=== PATIENT | female | born 1970 | race Caucasian/White ===

== ENCOUNTER 2016-11-21 15:00 | Emergency (ER) | payer OTHER ==
[2016-11-21] MEDS ORDERED: BABY ASPIRIN 81 MG CHEW PO ONE (15:16)
[2016-11-21] MEDS ORDERED: BABY ASPIRIN 81 MG CHEW ONE (15:25)
--- NOTE | 2016-11-21 15:28 | ERPHSYRPT ---
- History of Present Illness Time Seen by Provider: 11/21/16 15:20 Historian: patient Exam Limitations: no limitations Patient Subjective Stated Complaint: PT STATES AT 1400 SHE AWOKE FROM SLEEP HAVING CHEST PAIN. STATES IT HURT WORSE WHEN SHE GETS UP AND MOVES AROUND. REPORTS FEELING TIRED FOR APPROX 5 DAYS. Triage Nursing Assessment: PT IS AOX3, AMBULATORY TO COT WITH NO DIFFICUTLIES, RESPS ARE EASY AND NONLABORED, DENIES COUGH,HEART SOUNDS ARE NORMAL, RADIAL PULSES PALPATED AND ARE STRONG AND EQUAL. NO EDEMA APPRECIATED. REPORTS PAIN TO THE LEFT CHEST THAT RADIATES TO THE CENTER.PAIN IS CONSTANT IN NATURE. PT DENIES FEVER, REPORTS CHILLS. Physician History: The patient is a 46-year-old female who comes in complaining of worsening left- sided chest pain for 3 days. It hurts to take a deep breath or to move her trunk. She works nights and when she woke up this afternoon it was hurting worse than it was yesterday. She denies shortness of breath. She denies sweating. She has no cardiac history. A few months ago she had pleurisy and she thinks it is the same thing. Her past medical history significant for pleurisy, back pain, and ADHD. Timing/Duration: hour(s) (1) Activities at Onset: rest Quality: sharpness Location: other (left chest/ribs) Chest Pain Radiation: no radiation Severity of Pain-Max: moderate Severity of Pain-Current: moderate Modifying Factors: Improves With: breathing, movement Associated Symptoms: hurts to breathe Prior Chest Pain/Cardiac Workup: non-cardiac (pluerisy) Nitro Today/Relief: no nitro taken today Aspirin Treatment Today: no aspirin today Allergies/Adverse Reactions: Influenza Virus Vaccines Adverse Reaction (Verified 03/18/16 09:43) Home Medications: Hydrocodone/APAP 10/325 mg [[place] 10/325 MG Tablet] 1 tab PO Q4-6HPRN PRN 03/18/16 [History] Dextroamphetamine/Amphetamine [Adderall 20 mg Tablet] 20 mg PO BID 11/21/16 [ History] Hx Tetanus, Diphtheria Vaccination/Date Given: Yes Hx Influenza Vaccination/Date Given: No Hx Pneumococcal Vaccination/Date Given: No Immunizations Up to Date: Yes - Review of Systems Constitutional: No Fever, No Chills Eyes: No Symptoms Ears, Nose, & Throat: No Symptoms Respiratory: No Cough, No Dyspnea Cardiac: Chest Pain Abdominal/Gastrointestinal: No Abdominal Pain, No Nausea, No Vomiting, No Diarrhea Genitourinary Symptoms: No Dysuria Musculoskeletal: No Back Pain, No Neck Pain Skin: No Rash Neurological: No Dizziness, No Focal Weakness, No Sensory Changes Psychological: No Symptoms Endocrine: No Symptoms Hematologic/Lymphatic: No Symptoms Immunological/Allergic: No Symptoms All Other Systems: Reviewed and Negative - Past Medical History Pertinent Past Medical History: Yes Neurological History: Migraines, Peripheral Neuropathy Cardiac History: No Pertinent History Respiratory History: No Pertinent History Endocrine Medical History: No Pertinent History Musculoskeletal History: Other Other Medical History: spurring on T-spine, CARPAL TUNNEL - Past Surgical History Past Surgical History: Yes Female Surgical History: Section, Hysterectomy, Other - Social History Smoking Status: Former smoker How long have you smoked: USES VAPOR Exposure to second hand smoke: No Alcohol Use: None Drug Use: none Patient Lives Alone: No Significant Family History: heart disease, cancer, diabetes - Female History Hx Last Menstrual Period: HYST Hx Now: No - Nursing Vital Signs Nursing Vital Signs: Initial Vital Signs Temperature 97.9 F Pulse Rate [Bilateral Radial] 76 Pulse Rate 83 Respiratory Rate 18 Blood Pressure [Right Arm] 115/71 Pain Intensity 4 - Physical Exam General Appearance: no apparent distress, alert Eye Exam: PERRL/EOMI, eyes nml inspection Ears, Nose, Throat Exam: normal ENT inspection, moist mucous membranes Neck Exam: normal inspection, non-tender, supple, full range of motion Respiratory Exam: chest tenderness (palpation of left chest and left axilla reproduces pt's chest pain.) Cardiovascular Exam: regular rate/rhythm, normal heart sounds Gastrointestinal/Abdomen Exam: soft, No tenderness, No mass Pelvic Exam: not done Rectal Exam: not done Back Exam: normal inspection, No CVA tenderness, No vertebral tenderness Extremity Exam: normal inspection, normal range of motion Neurologic Exam: alert, oriented x 3, cooperative, normal mood/affect, sensation nml, No motor deficits Skin Exam: normal color, warm, dry SpO2 Interpretation: normal SpO2: 100 Oxygen Delivery: Room Air - Radiology Exams Chest X-ray Interpretation: Teleradiologist Report, Negative (per Dr Griffin.) Ordered Tests: Active Orders 24 hr Category Date Time Status Accounts Payable Bookkeeper STAT Care 11/21/16 15:15 Active IV Insertion STAT Care 11/21/16 15:15 Active CHEST 2 VIEWS (PA AND LAT) Stat Exams 11/21/16 15:41 Completed CBC W DIFF Stat Lab 11/21/16 15:15 Completed CMP Stat Lab 11/21/16 15:15 Completed TROPONIN Stat Lab 11/21/16 15:15 Completed Medication Summary Discontinued Medications Generic Name Dose Route Start Last Admin Trade Name Freq PRN Reason Stop Dose Admin Aspirin 324 mg 11/21/16 15:16 11/21/16 15:18 Baby Aspirin 81 Mg Chew PO 11/21/16 15:17 324 mg STAT ONE Administration Aspirin Confirm 11/21/16 15:25 Baby Aspirin 81 Mg Chew Administered 11/21/16 15:26 Dose 324 mg .ROUTE .STK-MED ONE Ketorolac Tromethamine 60 mg 11/21/16 15:41 11/21/16 16:03 Toradol 30 Mg Injection IM 11/21/16 15:42 Not Given STAT ONE Ketorolac Tromethamine 30 mg 11/21/16 15:51 11/21/16 16:00 Toradol 30 Mg Injection IV 11/21/16 15:52 30 mg STAT ONE Administration Ketorolac Tromethamine Confirm 11/21/16 15:52 Toradol 30 Mg Injection Administered 11/21/16 15:53 Dose 30 mg .ROUTE .STK-MED ONE Lab/Rad Data: Laboratory Result Diagrams 11/21/16 15:15 11/21/16 15:15 Laboratory Results 11/21/16 11/21/16 Range/Units 15:15 15:15 WBC 5.3 (4.0-10.5) K/mm3 RBC 4.00 L (4.1-5.4) M/mm3 Hgb 13.0 (12.0-16.0) gm/dl Hct 38.6 (35-47) % MCV 96.5 (78-100) fl MCH 32.5 H (26-32) pg MCHC 33.7 (32-36) g/dl RDW 11.5 (11.5-14.0) % Plt Count 185 (150-450) K/mm3 MPV 11.8 H (6-9.5) fl Gran % 71.8 H (36.0-66.0) % Lymphocytes % 19.8 L (24.0-44.0) % Monocytes % 6.9 (0.0-12.0) % Eosinophils % 1.1 (0.00-5.0) % Basophils % 0.4 (0.0-0.4) % Basophils # 0.02 (0-0.4) Sodium 143 (136-145) mEq/L Potassium 4.1 (3.5-5.1) mEq/L Chloride 109 H (98-107) mEq/L Carbon Dioxide 26.8 (21-32) mEq/L Anion Gap 11.7 (5-15) MEQ/L BUN 13 (9-20) mg/dL Creatinine 0.65 (0.55-1.30) mg/dl Estimated GFR > 60 ML/MIN Glucose 108 (70-110) MG/DL Calcium 8.7 (8.5-10.1) mg/dL Total Bilirubin 0.40 (0.2-1.0) mg/dL AST 18 (15-37) U/L ALT 23 (12-78) U/L Alkaline Phosphatase 70 (46-116) U/L Troponin I < 0.017 (0.000-0.056) ng/ml Serum Total Protein 7.0 (6.4-8.2) gm/dL Albumin 4.1 (3.4-5.0) g/dL - Progress Progress: unchanged Air Movement: good Blood Culture(s) Obtained: No Antibiotics given: No Counseled pt/family regarding: lab results, diagnosis, rad results - Departure Time of Disposition: 16:34 Departure Disposition: Home Clinical Impression: Chest pain made worse by breathing Condition: Stable Critical Care Time: No Additional Instructions: You have musculoskeletal chest pain. You were given Toradol 30 mg IV in the ER. Take Flexeril 5 mg every 8 hours as needed. Follow-up as needed. Prescriptions: Cyclobenzaprine HCl [Flexeril] 5 mg PO Q8H PRN PRN #6 tablet PRN Reason: Pain
[2016-11-21] MEDS ORDERED: TORAdol 30 mg Injection IM ONE (15:41)
[2016-11-21] MEDS ORDERED: TORAdol 30 mg Injection IV ONE (15:51)
[2016-11-21] MEDS ORDERED: TORAdol 30 mg Injection ONE (15:52)
[2016-11-21 15:59] LABS: BASOPHIL % 0.4 % (0.0-0.4); Eosinophil % 1.1 % (0.00-5.0); Granulocytes % 71.8 % (36.0-66.0); Lymphocytes % 19.8 % (24.0-44.0); Mean Cell Volume 96.5 fl (78-100); Mean Corpuscular Hemoglobin 32.5 pg (26-32); Mean Platelet Volume 11.8 fl (6-9.5); Monocytes % 6.9 % (0.0-12.0); Platelet Count 185 K/mm3 (150-450); Red Cell Distribution Width 11.5 % (11.5-14.0); White Blood Count 5.3 K/mm3 (4.0-10.5)
[2016-11-21 16:07] LABS: ALBUMIN 4.1 g/dL (3.4-5.0); ALKALINE PHOSPHATASE 70 U/L (46-116); ANION GAP 11.7 MEQ/L (5-15); BLOOD UREA NITROGEN 13 mg/dL (9-20); CHLORIDE 109 mEq/L (98-107); Carbon Dioxide 26.8 mEq/L (21-32); Glucose 108 MG/DL (70-110); Potassium 4.1 mEq/L (3.5-5.1); SGOT/AST 18 U/L (15-37); SGPT/ALT 23 U/L (12-78); SODIUM 143 mEq/L (136-145)
--- NOTE | 2016-11-21 16:07 | XRAY ---
Indication: Chest pain. Comparison: March 18, 2016. PA/lateral chest again demonstrates normal heart, lungs, and bony thorax.
[2016-11-21 16:12] LABS: TROPONIN < 0.017 ng/ml (0.000-0.056)
[2016-11-21 16:57] VITALS: BP 127/70; PULSE 76; O2SAT 99
== END 2016-11-21 16:53 | disposition home or self-care (01) ==
LOC: ED 15:00
DX: R07.89 Other chest pain (principal)
CPT/HCPCS: 36000; 36415; 71020; 80053; 84484; 85025; 93041; 96372; 96374; 99284; J1885; A9270-GY

== ENCOUNTER 2021-07-26 05:56 | Day surgery (SDC) | payer OTHER ==
[2021-07-26] MEDS ORDERED: Lactated Ringers 1,000 ML IV SCH (07:00)
[2021-07-26] MEDS ORDERED: Lactated Ringers 1,000 ML IV ONE (07:14)
[2021-07-26] MEDS ORDERED: Xylocaine-Mpf 2% 5 Ml Vial ONE (08:24)
[2021-07-26] MEDS ORDERED: DIPRIVAN 200 MG/20 ML IV ONE ×2 (08:24→08:31)
[2021-07-26] MEDS ORDERED: SUBLIMAZE 100 MCG/2 ML ONE (08:33)
--- NOTE | 2021-07-26 09:17 | OP ---
SURGERY DATE/TIME: 07/26/2021 0822 PREOPERATIVE DIAGNOSIS: Screening exam. POSTOPERATIVE DIAGNOSIS: Sigmoid colon polyp. PROCEDURE: Colonoscopy with cold forceps biopsy. SURGEON: Dr. Sage. ANESTHESIA: MAC. Medications given by anesthesia department. HISTORY: The patient is a 51-year-old white female presenting now for screening colonoscopy. The patient was appraised of the risks of the procedure including the risk of perforation, phlebitis, untoward reaction to medication, bleeding and missed lesions. The patient verbalized her understanding and desired to have the procedure performed. DESCRIPTION OF PROCEDURE: The patient was given the medications by the anesthesia department. She had continuous pulse oximetry, ECG monitoring, intermittent blood pressure monitoring and tidal CO2 monitoring during the examination. She was placed in the left lateral decubitus position. A digital rectal examination was performed and revealed normal anal sphincter tone and no masses. The flexible Olympus pediatric colonoscope was used to intubate the rectum. A view of the colon was developed sequentially to the cecum. Upon insertion and withdrawal, including a retroflex view in the rectum was noted one small polyp in the sigmoid colon this was biopsied with cold biopsy forceps destroying the lesion. The scope was removed from the patient who tolerated the procedure well and was sent back to OP recovery in good condition. The prep was noted to be fair to good.
[2021-07-26 09:20] VITALS: O2SAT 100
[2021-07-26 09:33] VITALS: BP 112/78; PULSE 78
== END 2021-07-26 09:46 | disposition home or self-care (01) ==
LOC: SDC 05:56
PROVIDERS: ATTEND Family Medicine
DX: Z12.11 Encounter for screening for malignant neoplasm of colon (principal); D12.5 Benign neoplasm of sigmoid colon
CPT/HCPCS: J2704; J3010

== ENCOUNTER 2024-02-28 20:08 | Emergency (ER) | payer SELFPAY ==
[2024-02-28 21:06] VITALS: RESP 18; TEMP 97.5
--- NOTE | 2024-02-28 21:51 | ERPHSYRPT ---
- History of Present Illness Time Seen by Provider: 02/28/24 21:45 Historian: patient Exam Limitations: no limitations Patient Subjective Stated Complaint: pt states she has been having pain in her rt side. worse with lifting and straining. worse when trying to lay on her rt side. Triage Nursing Assessment: pt alert and oreinted, answers questions approp. respirations nonlabored. skin warm and dry. abd soft, bowel sounds present x4 quads Physician History: 54yo f presents via private vehicle for RUQ and epigastric pain x 2wks. Pt reports her family has been telling her to go to the doctor for her pain and she finally decided to come today. Pt denies any nausea/vomiting/diarrhea, denies any fevers. Pt reports some mild constipation, last BM was 3d ago which she reports is normal for her. Pt reports hx of hysterectomy, no other abdominal surgeries. Timing/Duration: week(s) (2) Activities at Onset: none Quality: cramping Abdominal Pain Onset Location: RUQ, epigastric Pain Radiation: no radiation Severity of Pain-Max: mild Severity of Pain-Current: mild Modifying Factors: Improves With: nothing Associated Symptoms: No chest pain, No diarrhea, No fever/chills, No nausea, No vomiting Allergies/Adverse Reactions: Influenza Virus Vaccines Adverse Reaction (Verified 02/28/24 21:06) Nausea and Vomiting states "down for about 4 days" Home Medications: Dextroamphetamine/Amphetamine [Adderall 20 mg Tablet] 20 mg PO BID 11/21/16 [History] Hx Tetanus, Diphtheria Vaccination/Date Given: Yes Hx Influenza Vaccination/Date Given: No Hx Pneumococcal Vaccination/Date Given: No Immunizations Up to Date: Yes Travel Risk - International Travel Have you traveled outside of the country in past 3 weeks: No - Emerging Infectious Disease Are you exhibiting symptoms associated with any current EIDs: No - Review of Systems Constitutional: No Fever, No Chills, No Fatigue Respiratory: No Symptoms Cardiac: No Symptoms Abdominal/Gastrointestinal: Abdominal Pain, Constipation, No Nausea, No Vomiting, No Diarrhea Genitourinary Symptoms: No Symptoms - Past Medical History Pertinent Past Medical History: Yes Neurological History: No Pertinent History ENT History: No Pertinent History Cardiac History: No Pertinent History Respiratory History: No Pertinent History Endocrine Medical History: No Pertinent History Musculoskeletal History: Rheumatoid Arthritis GI Medical History: No Pertinent History History: No Pertinent History Psycho-Social History: No Pertinent History Female Reproductive Disorders: No Pertinent History Other Medical History: . - Past Surgical History Past Surgical History: Yes Neuro Surgical History: No Pertinent History Cardiac: No Pertinent History Respiratory: No Pertinent History Gastrointestinal: No Pertinent History Genitourinary: No Pertinent History Musculoskeletal: Other Female Surgical History: Section, Hysterectomy, Other Other Surgical History: rt carpal tunnel. uterine ablation Significant Family History: heart disease, cancer, diabetes - Social History Smoking Status: Current every day smoker How long have you smoked: 10yrs Exposure to second hand smoke: Yes Alcohol Use: None Drug Use: none Patient Lives Alone: No - Social Determinants of Health Will the patient participate in the screening: Yes Do you worry about a steady place to live?: No Do you have any problems with any of the following?: No known problems In the past 12 months,have you had to go without utilities?: No Transportation Issues: No Has anyone in your support network made you feel unsafe?: No Have you or anyone in your house had to go without enough: No - Nursing Vital Signs Nursing Vital Signs: Initial Vital Signs Temperature 97.5 F 02/28/24 20:43 Pulse Rate 100 H 02/28/24 20:43 Respiratory Rate 18 02/28/24 20:43 Blood Pressure 161/96 02/28/24 20:43 O2 Sat by Pulse Oximetry 100 02/28/24 20:43 Pain Scale Pain Intensity 4 - Physical Exam General Appearance: no apparent distress, alert Respiratory Exam: normal breath sounds, lungs clear, airway intact, No chest tenderness, No respiratory distress Cardiovascular Exam: regular rate/rhythm, normal heart sounds, normal peripheral pulses Gastrointestinal/Abdomen Exam: soft, normal bowel sounds, tenderness (RUQ TTP, + li's sign), No distention, No mass Skin Exam: normal color, warm, dry SpO2 Interpretation: normal SpO2: 99 O2 Delivery: Room Air Ordered Tests: Active Orders 24 hr Category Date Time Status ABDOMEN AND PELVIS W CONTRAST [CT] Stat Exams 02/28/24 21:50 Completed CBC W DIFF Stat Lab 02/28/24 21:47 Completed CMP Stat Lab 02/28/24 21:47 Completed CULTURE,URINE Stat Lab 02/28/24 22:37 Received LIPASE Stat Lab 02/28/24 21:47 Completed Lactic Acid Stat Lab 02/28/24 21:47 Completed UA W/RFX UR CULTURE Stat Lab 02/28/24 22:37 Completed Medication Summary Discontinued Medications Generic Name Dose Route Start Last Admin Trade Name Mamie PRN Reason Stop Dose Admin Sodium Chloride 1,000 mls @ 999 mls/hr 02/28/24 21:47 02/29/24 00:26 Sodium Chloride 0.9% 1000 Ml IV 02/28/24 22:47 Infused .Q1H1M STA Infusion Sodium Chloride Confirm 02/28/24 22:23 Sodium Chloride 0.9% 1000 Ml Administered 02/28/24 22:24 Dose 1,000 mls @ ud .ROUTE .STK-MED ONE Ibuprofen 600 mg 02/28/24 23:45 02/29/24 00:22 Ibuprofen 600 Mg Tablet PO 02/28/24 23:46 600 mg STAT ONE Administration Ibuprofen Confirm 02/29/24 00:12 Ibuprofen 600 Mg Tablet Administered 02/29/24 00:13 Dose 600 mg .ROUTE .STK-MED ONE Morphine Sulfate 2 mg 02/28/24 21:47 02/29/24 00:26 Morphine Sulfate 2 Mg/Ml Inj IV 02/28/24 21:48 Not Given STAT ONE Lab/Rad Data: Laboratory Result Diagrams 02/28/24 21:47 02/28/24 21:47 Laboratory Results 02/28/24 02/28/24 02/28/24 Range/Units 22:37 21:47 21:47 WBC (3.98-10.04) x10^3/uL RBC (3.93-5.22) x10^6/uL Hgb (11.2-15.7) g/dL Hct (34.1-44.9) % MCV (79.4-94.8) fL MCH (25.6-32.2) pg MCHC (32.2-35.5) g/dL RDW (11.7-14.4) % Plt Count (182-369) x10^3/uL MPV (9.4-12.3) fL Gran % (34.0-71.1) % Immature Gran % (Auto) (0.001-0.429) % Nucleat RBC Rel Count (0.00-0.2) % Eos # (Auto) (0.04-0.36) x10^3/uL Immature Gran # (Auto) (0.001-0.031) x10^3u/L Absolute Lymphs (auto) (1.18-3.74) x10^3/uL Absolute Monos (auto) (0.24-0.86) x10^3/uL Absolute Nucleated RBC (0.00-0.012) x10^3u/L Lymphocytes % (19.3-51.7) % Monocytes % (4.7-12.5) % Eosinophils % (0.7-5.8) % Basophils % (0.1-1.2) % Absolute Granulocytes (1.56-6.13) x10^3/uL Basophils # (0.01-0.08) x10^3/uL Sodium 136 (135-145) mmol/L Potassium 3.8 (3.5-5.1) mmol/L Chloride 106 (98-107) mmol/L Carbon Dioxide 24 (22-30) mmol/L Anion Gap 10.5 (5-15) MEQ/L BUN 12 (7-17) mg/dL Creatinine 0.58 (0.52-1.04) mg/dL Estimated GFR 106.8 ML/MIN Glucose 109 H (74-106) mg/dL Lactic Acid 0.5 (0.4-2.0) Calcium 8.7 (8.4-10.2) mg/dL Total Bilirubin 0.30 (0.2-1.3) mg/dL AST 31 (14-36) U/L ALT 22 (0-35) U/L Alkaline Phosphatase 87 (38-126) U/L Serum Total Protein 6.6 (6.3-8.2) g/dL Albumin 4.0 (3.5-5.0) g/dL Lipase 118 (23-300) U/L Urine Color Yellow (Yellow) Urine Appearance Turbid A (Clear) Urine pH 6.5 (4.6-8.0) Ur Specific [place] 1.020 (1.005-1.030) Urine Protein Negative (Negative) Urine Glucose (UA) Negative (Negative) mg/dL Urine Ketones Negative (Negative) Urine Blood Negative (Negative) Urine Nitrite Negative (Negative) Urine Bilirubin Negative (Negative) Urine Urobilinogen 1.0 A (0.2) mg/dL Ur Leukocyte Esterase Small A (Negative) U Hyaline Cast (Auto) 3-5 A (0-2) /LPF Urine Microscopic RBC 0-2 (0-5) /HPF Urine Microscopic WBC 21-50 A (0-5) /HPF Ur Epithelial Cells Rare (None Seen) /HPF Urine Bacteria Many A (None Seen) /HPF Urine Culture Reflexed YES (NO) 02/28/24 Range/Units 21:47 WBC 7.5 (3.98-10.04) x10^3/uL RBC 4.20 (3.93-5.22) x10^6/uL Hgb 13.3 (11.2-15.7) g/dL Hct 38.9 (34.1-44.9) % MCV 92.6 (79.4-94.8) fL MCH 31.7 (25.6-32.2) pg MCHC 34.2 (32.2-35.5) g/dL RDW 12.0 (11.7-14.4) % Plt Count 213 (182-369) x10^3/uL MPV 11.5 (9.4-12.3) fL Gran % 65.6 (34.0-71.1) % Immature Gran % (Auto) 0.1 (0.001-0.429) % Nucleat RBC Rel Count 0.0 (0.00-0.2) % Eos # (Auto) 0.10 (0.04-0.36) x10^3/uL Immature Gran # (Auto) 0.01 (0.001-0.031) x10^3u/L Absolute Lymphs (auto) 1.88 (1.18-3.74) x10^3/uL Absolute Monos (auto) 0.57 (0.24-0.86) x10^3/uL Absolute Nucleated RBC 0.00 (0.00-0.012) x10^3u/L Lymphocytes % 25.0 (19.3-51.7) % Monocytes % 7.6 (4.7-12.5) % Eosinophils % 1.3 (0.7-5.8) % Basophils % 0.4 (0.1-1.2) % Absolute Granulocytes 4.92 (1.56-6.13) x10^3/uL Basophils # 0.03 (0.01-0.08) x10^3/uL Sodium (135-145) mmol/L Potassium (3.5-5.1) mmol/L Chloride (98-107) mmol/L Carbon Dioxide (22-30) mmol/L Anion Gap (5-15) MEQ/L BUN (7-17) mg/dL Creatinine (0.52-1.04) mg/dL Estimated GFR ML/MIN Glucose (74-106) mg/dL Lactic Acid (0.4-2.0) Calcium (8.4-10.2) mg/dL Total Bilirubin (0.2-1.3) mg/dL AST (14-36) U/L ALT (0-35) U/L Alkaline Phosphatase (38-126) U/L Serum Total Protein (6.3-8.2) g/dL Albumin (3.5-5.0) g/dL Lipase (23-300) U/L Urine Color (Yellow) Urine Appearance (Clear) Urine pH (4.6-8.0) Ur Specific [place] (1.005-1.030) Urine Protein (Negative) Urine Glucose (UA) (Negative) mg/dL Urine Ketones (Negative) Urine Blood (Negative) Urine Nitrite (Negative) Urine Bilirubin (Negative) Urine Urobilinogen (0.2) mg/dL Ur Leukocyte Esterase (Negative) U Hyaline Cast (Auto) (0-2) /LPF Urine Microscopic RBC (0-5) /HPF Urine Microscopic WBC (0-5) /HPF Ur Epithelial Cells (None Seen) /HPF Urine Bacteria (None Seen) /HPF Urine Culture Reflexed (NO) - Progress Progress: improved, pain not gone completely Progress Note: 02/28/24 23:32 CT abd/pelvis showed: 1. Mild circumferential edematous mural thickening with surrounding increased vascularity seen in the ascending colon, the possibility of infective/inflammatory colitis. Recommended clinical correlation 2. Multiple subcentimeter mesenteric nodes could be reactive. 3. Sliding hiatus hernia 4. A tiny 1-1.5mm non-obstructive calculus in the upper calyx of the left kidney. 5. An 18 x 12 mm nodular lesion was seen in the medial limb of left adrenal gland. Possible adenoma 6. Calcified plaque was seen at the origin of the left renal artery resulting in nearly 30% luminal obliteration 7. Small hepatic haemangioma within segment . 02/28/24 23:51 plan for discharge home w/ close PCP follow up this week recommend daily antacid for control of reflux recommend tylenol/ibuprofen for pain control recommend oral hydration w/ clear liquids/electrolyte containing fluids return to ED if: develop fevers that do not resolve w/ tylenol, develop bloody vomit or stools, pain becomes unbearable Counseled pt/family regarding: lab results, diagnosis, need for follow-up, rad results Medical Desision Making - Diagnostic Testing Diagnostic test were ordered, analyzed, and reviewed by me: Yes Radiological Interpretation: Reviewed by me, Teleradiologist Report - Risk of complications Minimal Risk: Minimal risk of morbidity - Departure Departure Disposition: Home Clinical Impression: Hiatal hernia, Colitis Abdominal pain Qualifiers: Abdominal location: right upper quadrant Qualified Code(s): R10.11 - Right upper quadrant pain Condition: Stable Critical Care Time: No Referrals: DOMINGO PATEL, LIFE MANAGER [Primary Care Provider] - Follow up/PCP as directed Instructions: Severe Abdominal Pain, Adult (DC), Dyspepsia (DC) Additional Instructions: plan for discharge home w/ close PCP follow up this week recommend daily antacid for control of reflux recommend tylenol/ibuprofen for pain control recommend oral hydration w/ clear liquids/electrolyte containing fluids return to ED if: develop fevers that do not resolve w/ tylenol, develop bloody vomit or stools, pain becomes unbearable Forms: Work/School Release Form
[2024-02-28 21:54] LABS: Absolute Neutrophil Ct (ANC) 4.92 x10^3/uL (1.56-6.13); BASOPHIL % 0.4 % (0.1-1.2); Basophil (Absolute #) 0.03 x10^3/uL (0.01-0.08); Eosinophil % 1.3 % (0.7-5.8); Hematocrit 38.9 % (34.1-44.9); Hemoglobin 13.3 g/dL (11.2-15.7); IMMATURE GRAN # 0.01 x10^3u/L (0.001-0.031); IMMATURE GRAN % 0.1 % (0.001-0.429); Lymphocyte (Absolute #) 1.88 x10^3/uL (1.18-3.74); Mean Cell Volume 92.6 fL (79.4-94.8); Mean Corpuscular Hemoglobin 31.7 pg (25.6-32.2); Mean Corpuscular Hgb Concent. 34.2 g/dL (32.2-35.5); Mean Platelet Volume 11.5 fL (9.4-12.3); Monocyte (Absolute #) 0.57 x10^3/uL (0.24-0.86); Monocytes % 7.6 % (4.7-12.5); Neutrophil % 65.6 % (34.0-71.1); Platelet Count 213 x10^3/uL (182-369); White Blood Count 7.5 x10^3/uL (3.98-10.04)
[2024-02-28 21:59] LABS: ANION GAP 10.5 MEQ/L (5-15); BILIRUBIN,TOTAL 0.3 mg/dL (0.2-1.3); Calcium 8.7 mg/dL (8.4-10.2); Creatinine 1 0.58 mg/dL (0.52-1.04); EST GLOMERULAR FILTRATION RATE 106.8 ML/MIN; Potassium 3.8 mmol/L (3.5-5.1); Total Protein 6.6 g/dL (6.3-8.2)
[2024-02-28 22:17] VITALS: PULSE 83
[2024-02-28] MEDS ORDERED: Sodium Chloride 0.9% 1000 ML 1,000 ML ONE (22:23)
[2024-02-28] MEDS: Sodium Chloride 0.9% 1000 ML 1,000 ML IV STA (22:47)
[2024-02-28 23:23] LABS: Appearance Turbid (Clear); Bacteria Many /HPF (None Seen); Bilirubin Negative (Negative); Blood Negative (Negative); Epithelial Cells Rare /HPF (None Seen); Glucose, Urine Negative (Negative); Ketones Negative (Negative); Leukocyte Esterase Small (Negative); Nitrite Negative (Negative); Ph 6.5 (4.6-8.0); Protein,Urine Dip Negative (Negative); RBC 0-2 /HPF (0-5); WBC 21-50 /HPF (0-5)
[2024-02-28 23:28] LABS: ADD URINE CULTURE? YES (NO)
--- NOTE | 2024-02-28 23:30 | XRAY ---
CLINICAL HISTORY: RUQ pain COMPARISON: None. TECHNIQUE: A CT scan of the abdomen and pelvis was performed with IV contrast. Coronal and sagittal reconstructive images were also obtained. One of the following dose reduction techniques was utilized for this exam: Automated exposure control, adjustment of the mA and/or kV according to patient size, and use of iterative reconstruction. FINDINGS: Abdomen: Mild circumferential edematous mural thickening with surrounding increased vascularity seen in the ascending colon, the possibility of infective/inflammatory colitis. Multiple subcentimeter mesenteric nodes noted could be reactive. Liver is enlarged in size, measuring 16.5 cm craniocaudally with fatty infiltration. A small peripherally enhancing lesion is identified within segment of the right hepatic lobe along its medial margin appearing isodense on delayed phase likely representing a small hemangioma. It measures 11 x 11 mm on the axial section. No other focal or diffuse parenchymal abnormality. The portal vein, intrahepatic biliary radicals and the bile ducts are normal. The gallbladder is normal. No pericholecystic collection or radio-dense calculi in the gall bladder. The spleen, pancreas, Right adrenal gland appear unremarkable. A 18 x 12 mm nodular lesion seen in the medial limb of left adrenal gland. A tiny 1-1.5mm non-obstructive calculus in the upper calyx of the left kidney. The kidneys are normal in size and shape. No calculi or hydronephrosis on right. Calcified plaque seen at the origin of left renal artery resulting in nearly 30% luminal obliteration Sliding hiatus hernia identified. The rest of the visualized bowel loops are unremarkable. The appendix appears unremarkable, pelvic in location. Pelvis: The urinary bladder is unremarkable. The rectosigmoid colon is unremarkable. Post hysterectomy status. No evidence of pelvic lymphadenopathy. Degenerative changes in the lumbar spine were noted. IMPRESSION: 1. Mild circumferential edematous mural thickening with surrounding increased vascularity seen in the ascending colon, the possibility of infective/inflammatory colitis. Recommended clinical correlation 2. Multiple subcentimeter mesenteric nodes could be reactive. 3. Sliding hiatus hernia 4. A tiny 1-1.5mm non-obstructive calculus in the upper calyx of the left kidney. 5. An 18 x 12 mm nodular lesion was seen in the medial limb of left adrenal gland. Possible adenoma 6. Calcified plaque was seen at the origin of the left renal artery resulting in nearly 30% luminal obliteration 7. Small hepatic haemangioma within segment . [facility] ER was called at [phone] at 10:21 PM [employer], 02/28/2024 Kenna ,Nurse was informed regarding the presence of important medical findings in the report. Electronically Signed by: Jay Rubi MD. (02/28/2024 23:26:13 EDT)
[2024-02-28 23:38] VITALS: O2SAT 99
[2024-02-29 00:09] VITALS: BP 129/79
[2024-02-29] MEDS ORDERED: MOTRIN 600 MG ONE (00:12)
[2024-02-29] MEDS: MOTRIN 600 MG PO ONE (00:22)
[2024-02-29] MEDS: MORPHINE SULFATE 2 MG INJ IV ONE (00:26)
== END 2024-02-29 00:35 | disposition home or self-care (01) ==
LOC: ED 20:08
DX: K52.9 Noninfective gastroenteritis and colitis, unspecified (principal); R10.11 Right upper quadrant pain; R10.13 Epigastric pain; K59.00 Constipation, unspecified; F17.200 Nicotine dependence, unspecified, uncomplicated; K44.9 Diaphragmatic hernia without obstruction or gangrene
CPT/HCPCS: 36000; 36415; 74177; 80053; 81001; 83605; 83690; 85025; 87077; 87086; 87186; 99284; A9270-GY

== ENCOUNTER 2025-04-24 13:29 | Emergency (ER) | payer OTHER ==
[2025-04-24 13:41] VITALS: RESP 18; TEMP 97.6; O2SAT 100
[2025-04-24] MEDS ORDERED: TORAdol 30 mg Injection ONE (14:14)
--- NOTE | 2025-04-24 14:14 | ERPHSYRPT ---
- History of Present Illness Time Seen by Provider: 04/24/25 13:33 Source: patient Exam Limitations: no limitations Patient Subjective Stated Complaint: Pt states "A smoker fell onto my leg last night." Triage Nursing Assessment: Pt presented alert and oriented X 3, ski pwd. Pt ambuates with assist of 2, left knee swollen, tender, bruised. Physician History: 55-year-old female presents to the emergency room with leg pain to her left leg and knee patient reports a smoker fell onto her leg last night in the evening she is taking Tylenol with minimal improvement denies any other injury she reports some pain when she ambulates denies hitting her head denies losing consciousness denies any chest pain or shortness of breath denies abdominal pain or back pain patient reports primary pain to the left knee and leg now in ED for further eval Method of Injury: direct blow Occurred: yesterday Quality: constant Severity of Pain-Max: mild Severity of Pain-Current: mild Lower Extremities Pain: leg: left, knee: left Modifying Factors: Improves With: nothing Associated Symptoms: unable to bear weight Allergies/Adverse Reactions: Influenza Virus Vaccines Adverse Reaction (Verified 02/28/24 21:06) Nausea and Vomiting states "down for about 4 days" Home Medications: Dextroamphetamine/Amphetamine [Adderall 20 mg Tablet] 20 mg PO BID 11/21/16 [History] Metformin HCl 500 mg [Glucophage 500 MG] 500 mg PO BIDWM 04/24/25 [History] estradioL [Estradiol] 1 mg PO DAILY 04/24/25 [History] Hx Tetanus, Diphtheria Vaccination/Date Given: No Hx Influenza Vaccination/Date Given: No Hx Pneumococcal Vaccination/Date Given: No Immunizations Up to Date: No Travel Risk - International Travel Have you traveled outside of the country in past 3 weeks: No - Emerging Infectious Disease Are you exhibiting symptoms associated with any current EIDs: No - Review of Systems Constitutional: No Fever, No Chills Eyes: No Symptoms Ears, Nose, & Throat: No Symptoms Respiratory: No Cough, No Dyspnea Cardiac: No Chest Pain, No Edema, No Syncope Abdominal/Gastrointestinal: No Abdominal Pain, No Nausea, No Vomiting, No Diarrhea Genitourinary Symptoms: No Dysuria Musculoskeletal: Joint Pain, No Back Pain, No Neck Pain Skin: No Rash Neurological: No Dizziness, No Focal Weakness, No Sensory Changes Psychological: No Symptoms Endocrine: No Symptoms All Other Systems: Reviewed and Negative - Past Medical History Pertinent Past Medical History: Yes Neurological History: No Pertinent History ENT History: No Pertinent History Cardiac History: No Pertinent History Respiratory History: No Pertinent History Endocrine Medical History: No Pertinent History Musculoskeletal History: Rheumatoid Arthritis GI Medical History: No Pertinent History History: No Pertinent History Psycho-Social History: No Pertinent History Female Reproductive Disorders: No Pertinent History Other Medical History: . - Past Surgical History Past Surgical History: Yes Neuro Surgical History: No Pertinent History Cardiac: No Pertinent History Respiratory: No Pertinent History Gastrointestinal: No Pertinent History Genitourinary: No Pertinent History Musculoskeletal: Other Female Surgical History: Section, Hysterectomy, Other Other Surgical History: rt carpal tunnel. uterine ablation Significant Family History: heart disease, cancer, diabetes - Social History Smoking Status: Current every day smoker How long have you smoked: 10yrs Exposure to second hand smoke: Yes Drug Use: none - Social Determinants of Health Will the patient participate in the screening: Yes Do you worry about a steady place to live?: No Do you have any problems with any of the following?: No known problems In the past 12 months,have you had to go without utilities?: No Transportation Issues: No Has anyone in your support network made you feel unsafe?: No Have you or anyone in your house had to go w/o enough food: No - Nursing Vital Signs Nursing Vital Signs: Initial Vital Signs Temperature 97.6 F 04/24/25 13:36 Pulse Rate 100 H 04/24/25 13:36 Respiratory Rate 18 04/24/25 13:36 Blood Pressure 129/62 04/24/25 13:36 O2 Sat by Pulse Oximetry 100 04/24/25 13:36 Pain Scale Pain Intensity 8 - Physical Exam General Appearance: alert Eyes, Ears, Nose, Throat Exam: moist mucous membranes Neck Exam: non-tender, supple Cardiovascular/Respiratory Exam: chest non-tender, normal breath sounds, regular rate/rhythm, no respiratory distress Gastrointestinal/Abdominal Exam: non-tender, guarding Back Exam: normal inspection, No vertebral tenderness Legs Exam: left leg: ecchymosis, pain, soft tissue tenderness, swelling Knees Exam: left knee: ecchymosis, pain, soft tissue tenderness Neuro/Tendon Exam: normal sensation, normal motor functions Mental Status Exam: alert, oriented x 3, cooperative Skin Exam: normal color, warm, dry SpO2: 100 Ordered Tests: Active Orders 24 hr Category Date Time Status Crutches STAT Care 04/24/25 14:41 Active Immobilizer STAT Care 04/24/25 14:41 Active FEMUR Stat Exams 04/24/25 13:52 Completed KNEE (3 VIEWS) Stat Exams 04/24/25 13:52 Completed Medication Summary Discontinued Medications Generic Name Dose Route Start Last Admin Trade Name Mamie PRN Reason Stop Dose Admin Cyclobenzaprine HCl 10 mg 04/24/25 13:52 04/24/25 14:16 Cyclobenzaprine Hcl 10 Mg Tablet PO 04/24/25 13:53 10 mg STAT ONE Administration Cyclobenzaprine HCl Confirm 04/24/25 14:15 Cyclobenzaprine Hcl 10 Mg Tablet Administered 04/24/25 14:16 Dose 10 mg .ROUTE .STK-MED ONE Ketorolac Tromethamine 15 mg 04/24/25 13:52 04/24/25 14:15 Ketorolac Tromethamine 30 Mg/Ml Inj IM 04/24/25 13:53 15 mg STAT ONE Administration Ketorolac Tromethamine Confirm 04/24/25 14:14 Ketorolac Tromethamine 30 Mg/Ml Inj Administered 04/24/25 14:15 Dose 30 mg .ROUTE .STK-MED ONE Oxycodone/Acetaminophen 2 tab 04/24/25 14:50 Oxycodone Hcl/Apap 5 Mg/325 Mg Tablet PO 04/24/25 14:51 SENT HOME W/ PATIENT STA - Progress Progress Note: 04/24/25 14:13 Pending x-ray patient was given Toradol and Flexeril 04/24/25 14:40 Comparison: None 3 view left knee demonstrates acute depressed comminuted fracture lateral tibial plateau with hemarthrosis. Query nondisplaced fracture inferior patella. Elsewhere osteopenia and incidental tiny posterior fabella. 04/24/25 14:40 Comparison: None 2 view left femur demonstrates osteopenia. There is 1 cm heterotopic ossifications greater trochanter/right ischial tuberosity either degenerative versus sequela old injury. No other abnormalities. Knee reported separately. - Departure Departure Disposition: Home Clinical Impression: Leg sprain Knee contusion Qualifiers: Encounter type: initial encounter Laterality: left Qualified Code(s): S80.02XA - Contusion of left knee, initial encounter Contusion of leg Qualifiers: Encounter type: initial encounter Laterality: left Qualified Code(s): S80.12XA - Contusion of left lower leg, initial encounter Fracture, patella Qualifiers: Encounter type: initial encounter Fracture type: closed Fracture morphology: unspecified fracture morphology Fracture alignment: nondisplaced Laterality: left Qualified Code(s): S82.002A - Unspecified fracture of left patella, initial encounter for closed fracture Tibial plateau fracture, left Qualifiers: Encounter type: initial encounter Fracture type: closed Qualified Code(s): S82.142A - Displaced bicondylar fracture of left tibia, initial encounter for closed fracture Condition: Stable Critical Care Time: No Referrals: DOMINGO PATEL NP [Primary Care Provider, [facility]] - Follow up/PCP as directed RAFI LEWIS MD [ACTIVE STAFF, ORTHOPEDICS] - Follow up/PCP as directed Instructions: Lower leg fracture, Knee Pain (DC), Patella fracture, How to use crutches Additional Instructions: Use Tylenol Motrin for pain and only use the controlled substance for breakthrough pain follow-up with orthopedics for your fracture use the knee immobilizer and crutches Prescriptions: Cyclobenzaprine HCl 10 mg [Cyclobenzaprine 10 MG] 10 mg PO HS #7 tab
[2025-04-24] MEDS ORDERED: Cyclobenzaprine 10 MG ONE (14:15)
[2025-04-24] MEDS: TORAdol 30 mg Injection IM ONE (14:15)
[2025-04-24] MEDS: Cyclobenzaprine 10 MG PO ONE (14:16)
--- NOTE | 2025-04-24 14:35 | XRAY ---
Indication: Fall. Comparison: None 2 view left femur demonstrates osteopenia. There is 1 cm heterotopic ossifications greater trochanter/right ischial tuberosity either degenerative versus sequela old injury. No other abnormalities. Knee reported separately.
--- NOTE | 2025-04-24 14:37 | XRAY ---
Indication: Fall. Comparison: None 3 view left knee demonstrates acute depressed comminuted fracture lateral tibial plateau with hemarthrosis. Query nondisplaced fracture inferior patella. Elsewhere osteopenia and incidental tiny posterior fabella.
[2025-04-24 14:52] VITALS: BP 140/76; PULSE 89
[2025-04-24] MEDS ORDERED: PERCOCET TABLET 5/325MG ONE (14:55)
[2025-04-24] MEDS: PERCOCET TABLET 5/325MG PO STA ×2 (15:07)
== END 2025-04-24 15:00 | disposition home or self-care (01) ==
LOC: ED 13:29
DX: S82.002A Unspecified fracture of left patella, initial encounter for closed fracture (principal); S82.142A Displaced bicondylar fracture of left tibia, initial encounter for closed fracture; S80.12XA Contusion of left lower leg, initial encounter; S80.02XA Contusion of left knee, initial encounter; S86.912A Strain of unspecified muscle(s) and tendon(s) at lower leg level, left leg, initial encounter; W20.8XXA Other cause of strike by thrown, projected or falling object, initial encounter; Z79.84 Long term (current) use of oral hypoglycemic drugs; Z79.899 Other long term (current) drug therapy; Z72.0 Tobacco use